=== PATIENT | male | born 1965 | race Caucasian/White ===

== ENCOUNTER → 2021-01-17 | Outpatient (CLI) | payer MEDICARE, OTHER | LOC: KOH-I 13:28 | DX: G43.719 Chronic migraine without aura, intractable, without status migrainosus (principal) | CPT/HCPCS: 70450 ==

== ENCOUNTER → 2021-09-15 | Outpatient (CLI) | payer MEDICARE, OTHER ==
[~2021-09-15] MED LIST: CYCLOBENZAPRINE5 MG PO; DILTIAZEM ER180 MG PO; FISH OIL 1,0001 EACH PO; FLOMAX 0.4 MG0.4 MG PO; GABAPENTIN300 MG PO; GLUCAGON EMERGEN1 MG INJ; HYDROCODONE-AC1 EAC1 PO; IPRAT-ALBUT 0.5-3 ML INH; LANTUS SOL100 UNIT/1 SQ; LIPITOR40 MG PO; LOVENOX30 MG/0.3 SQ; NOVOLOG FL100 UNIT/1 SQ; PROTONIX 40 MG40 M1 PO; SERTRALINE HCL50 MG PO; TAMBOCOR 100 M100 MG PO; TERBINAFINE HC250 MG PO; VITAMIN B-121000 MC3 PO; VITAMIN D21250 MCG PO; WARFARIN SODIUM6 MG PO; ZONEGRAN25 MG PO
== END ==
LOC: KOH-I 09:07
DX: Z01.818 Encounter for other preprocedural examination (principal); S52.572A Other intraarticular fracture of lower end of left radius, initial encounter for closed fracture
CPT/HCPCS: 73200

== ENCOUNTER 2021-09-16 05:33 | Inpatient (IN) | payer MEDICARE, OTHER ==
[~2021-09-16] VITALS: Ht 177.8 cm; Wt 103.4 kg
[2021-09-16 06:34] LABS: HEMOGLOBIN 14.7 gm/dl (14.0-17.5); RED BLOOD COUNT 5.18 M/UL (4.20-5.50)
[2021-09-16] MEDS ORDERED: TERBINAFINE HC250 MG PO (06:40)
[2021-09-16] MEDS ORDERED: CYCLOBENZAPRINE5 MG PO (06:40)
[2021-09-16] MEDS ORDERED: NOVOLOG FL100 UNIT/1 SQ (06:41)
[2021-09-16] MEDS ORDERED: PROTONIX 40 MG40 M1 PO (06:42)
[2021-09-16] MEDS ORDERED: LANTUS SOL100 UNIT/1 SQ (06:42)
[2021-09-16] MEDS ORDERED: TAMBOCOR 100 M100 MG PO (06:44)
[2021-09-16] MEDS ORDERED: GABAPENTIN300 MG PO (06:46)
[2021-09-16] MEDS ORDERED: SERTRALINE HCL50 MG PO (06:47)
[2021-09-16] MEDS ORDERED: WARFARIN SODIUM6 MG PO (06:48)
[2021-09-16] MEDS ORDERED: ZONEGRAN25 MG PO (06:49)
[2021-09-16] MEDS ORDERED: DILTIAZEM ER180 MG PO (06:51)
[2021-09-16] MEDS ORDERED: GLUCAGON EMERGEN1 MG INJ (06:52)
[2021-09-16] MEDS ORDERED: LIPITOR40 MG PO (06:53)
[2021-09-16] MEDS ORDERED: FLOMAX 0.4 MG0.4 MG PO (06:54)
[2021-09-16 06:55] LABS: BUN/CREATININE RATIO 20 (0-10)
[2021-09-16] MEDS ORDERED: LOVENOX30 MG/0.3 SQ (06:55)
[2021-09-16] MEDS ORDERED: FISH OIL 1,0001 EACH PO (06:56)
[2021-09-16] MEDS ORDERED: HYDROCODONE-AC1 EAC1 PO (12:53)
[2021-09-16 16:40] LABS: HEMOGLOBIN 15.3 gm/dl (14.0-17.5); RED BLOOD COUNT 5.16 M/UL (4.20-5.50)
[2021-09-16 16:43] LABS: WHITE BLOOD COUNT 11.3 K/UL (4.5-11.0)
[2021-09-16 17:06] LABS: BUN/CREATININE RATIO 22 (0-10)
[2021-09-16] MEDS ORDERED: VITAMIN D21250 MCG PO (18:30)
[2021-09-16] MEDS ORDERED: VITAMIN B-121000 MC3 PO (18:30)
--- NOTE | 2021-09-17 04:39 | NUR ---
pt has only hydrocodone every 6 hours prn ordered. At 2319 pt called out having chest pain. notified provider did stat ekg, stat cardiac labs, provided hydrocodone and order was received for morphine 2mg iv once now provided. pt stated his pain was relieved a bit but not gone. At 0238 pt called out stated his arm was in severe pain notified provider morphine 2mg iv once now provided for a second dose of Morphine. at 4:10 patient still in pain provided dilaudid 0.5mg iv once now. Ice pack also provided. will continue to monitor.
[2021-09-17 06:42] LABS: RED BLOOD COUNT 5.15 M/UL (4.20-5.50); WHITE BLOOD COUNT 9.3 K/UL (4.5-11.0)
[2021-09-17 07:10] LABS: BUN/CREATININE RATIO 23 (0-10)
[2021-09-17] MEDS ORDERED: IPRAT-ALBUT 0.5-3 ML INH (12:44)
== END 2021-09-17 14:44 | disposition home or self-care (01) | DRG 511 ==
LOC: OR 05:33 → M/S 17:00 → OR 17:33 → M/S 17:35
PROVIDERS: Internal Medicine; Physician Assistant; ADMIT Orthopaedic Surgery
PROC: 2W39X2Z Immobilization of Left Upper Extremity using Cast (ICD-10-PCS; 2021-09-16)
PROC: 0PSJ04Z Reposition Left Radius with Internal Fixation Device, Open Approach (ICD-10-PCS; principal; 2021-09-16 07:30)
DX: S52.502A Unspecified fracture of the lower end of left radius, initial encounter for closed fracture (principal); J98.11 Atelectasis; Z20.822 Contact with and (suspected) exposure to COVID-19; I48.91 Unspecified atrial fibrillation; E78.5 Hyperlipidemia, unspecified; S52.91XA Unspecified fracture of right forearm, initial encounter for closed fracture; X58.XXXA Exposure to other specified factors, initial encounter; I49.5 Sick sinus syndrome; K21.9 Gastro-esophageal reflux disease without esophagitis; E11.40 Type 2 diabetes mellitus with diabetic neuropathy, unspecified; I11.9 Hypertensive heart disease without heart failure; Z85.038 Personal history of other malignant neoplasm of large intestine; Z90.49 Acquired absence of other specified parts of digestive tract; Z79.01 Long term (current) use of anticoagulants; Z95.0 Presence of cardiac pacemaker; Z88.8 Allergy status to other drugs, medicaments and biological substances; Z88.6 Allergy status to analgesic agent; Z83.3 Family history of diabetes mellitus; Z82.49 Family history of ischemic heart disease and other diseases of the circulatory system; Z86.711 Personal history of pulmonary embolism; Z79.4 Long term (current) use of insulin
CPT/HCPCS: 71045; 73110; 73200; 76000; 80048; 80053; 82550; 82553; 82962; 84484; 85025; 85027; 85379; 85610; 85730; 93005; 94640; 94664; 94760; C1713; J0171; J0690; J1100; J1170; J1650; J2001; J2250; J2270; J2370; J2405; J2704; J2710; J2795; J3010; J7120